=== PATIENT | male | born 1945 | race Asian ===

== ENCOUNTER 2016-11-03 08:56 | Day surgery (SDC) | payer OTHER, MEDICARE ==
[2016-11-02 15:25] VITALS: BMI 27.5
[2016-11-03 11:04] VITALS: TEMP 98.5
[2016-11-03 12:42] VITALS: BP 148/68; PULSE 70
--- NOTE | 2016-11-04 12:33 | PATH ---
Surgical Pathology Report Patient Name: WILDA FONTANEZ [facility]. Rec. #: [id number] /Age/Gender: 1945 (Age: 71) / M Account: [id number] Location: [facility]OSCOPY Taken: 11/03/2016 Received: 11/03/2016 Reported: 11/04/2016 Physicians: Alli Rodriguez M.D. Specimen(s) Received A: BX DESCENDING COLON POLYPS B: BX POLYP CECUM Clinical History History of colonic polyp Colon polyps (descending colon and cecum) Final Diagnosis A. COLON, DESCENDING, BIOPSY: TUBULAR ADENOMA. B. COLON, CECUM, BIOPSY: HYPERPLASTIC POLYP. Electronically Signed Mookie Ochoa M.D. Gross Description A. Received in formalin, labeled "biopsy descending colon polyp" are 2 marie, irregular portions of soft tissue averaging 0.2 cm. in greatest dimension. The specimens are submitted in toto in one cassette. B. Received in formalin, labeled "biopsy polyp cecum" are 4 marie, irregular portions of soft tissue averaging 0.2 cm. in greatest dimension. The specimens are submitted in toto in one cassette. 11/03/2016 saudi11/03/2016
== END 2016-11-03 12:30 | disposition home or self-care (01) ==
LOC: JASU-ENDO 08:56
PROVIDERS: ATTEND Internal Medicine Gastroenterology
PROC: 0DBM8ZX Excision of Descending Colon, Via Natural or Artificial Opening Endoscopic, Diagnostic (ICD-10-PCS; 2016-11-03)
PROC: 0DBH8ZX Excision of Cecum, Via Natural or Artificial Opening Endoscopic, Diagnostic (ICD-10-PCS; principal; 2016-11-03 10:00)
DX: Z12.11 Encounter for screening for malignant neoplasm of colon (principal); Z86.010 Personal history of colon polyps; D12.0 Benign neoplasm of cecum; D12.4 Benign neoplasm of descending colon
CPT/HCPCS: 88305-TC

== ENCOUNTER 2017-10-25 10:25 | Day surgery (SDC) | payer OTHER ==
[2017-10-22 17:34] VITALS: BMI 27.3
[2017-10-25] MEDS ORDERED: PROMETHAZINE HCL 25 MG/1 ML VIAL IVPUSH PRN (13:49)
[2017-10-25] MEDS ORDERED: ONDANSETRON 4 MG/2 ML VIAL IVPUSH PRN (13:49)
[2017-10-25] MEDS ORDERED: LACTATED RINGERS SOLUTION 1,000 ML IV SCH (14:00)
[2017-10-25] MEDS ORDERED: MIDAZOLAM HCL 2 MG/2 ML SINGLE DOSE VIAL ONE ×2 (14:21→14:50)
[2017-10-25] MEDS ORDERED: ceFAZolin SODIUM 1 GM VIAL ONE (14:25)
[2017-10-25] MEDS ORDERED: SODIUM CHLORIDE 0.9% P/F 10 ML VIAL IJ ONE (14:25)
[2017-10-25] MEDS ORDERED: ceFAZolin SODIUM 1 GM VIAL IVPB ONE (14:25)
--- NOTE | 2017-10-25 16:22 | HP ---
DATE OF ADMISSION: HISTORY: The patient is a 72-year-old male with a history of diabetes, high blood pressure, and severe prostatism. He complains of frequency, urgency, nocturia, and feelings of incomplete bladder emptying. PHYSICAL EXAMINATION: Abdomen: Soft abdomen. Genitalia: Atraumatic. His prostate is 3+, smooth, benign, nontender. Neurologic: No localizing findings. Skin: Reveals no rashes or lesions. A chest x-ray revealed cardiomegaly with increased interstitial markings, calcified aortic notch. Patient underwent an echocardiogram, which revealed cardiomegaly but was cleared cardiologically. Presently, he is to undergo a transurethral vaporization of the prostate. All side effects including retrograde ejaculation are explained to the patient, and he agrees. Roberto [id number]
--- NOTE | 2017-10-25 17:38 | OP ---
DATE OF OPERATION: 10/25/2017 PREOPERATIVE DIAGNOSES: Benign prostatic hypertrophy, urinary retention, lower urinary tract symptoms, large post-void residual. POSTOPERATIVE DIAGNOSES: Obstructive prostate gland and trabeculated bladder. OPERATIVE PROCEDURE: Cystourethroscopy, excision of bladder neck polyp, and transurethral vaporization of prostate. ANESTHESIA: General. DESCRIPTION OF PROCEDURE: Under above-stated anesthesia, patient was prepped and draped in the usual sterile manner. Cystoscopy revealed trilobar hypertrophy of the prostate with a grade 2 trabeculation. On inspection, a polypoid lesion was seen at the 6 o'clock position of the bladder neck. This was grasped with a biopsy forcep and the area fulgurated and sent separately to Pathology. The vaportrode was then introduced, and vaporization of the prostate was commenced in the usual fashion by commencing at the 6 o'clock position of the right lateral lobe and moving on to the 12 o'clock position. Same thing was done to the left lateral lobe. Lastly, the median lobe was resected. Hemostasis was secured with electrocoagulation. Prostate chips were evacuated with an Tizra evacuator. No active bleeding was noted. Therefore, a 22-Trinidadian 10-mL Beltran was inserted. This was connected to a leg bag. The patient tolerated the procedure well. He returned to the recovery room in good condition. Roberto [id number]
[2017-10-25 17:40] VITALS: PULSE 70
[2017-10-25 18:55] VITALS: BP 153/84
--- NOTE | 2017-10-27 10:02 | PATH ---
Cytology Non-Gynecological Report Patient Name: WILDA FONTANEZ Med. Rec. #: [id number] /Age/Gender: 1945 (Age: 72) / M Account: [id number] Location: [facility] Taken: 10/25/2017 Received: 10/26/2017 Reported: 10/27/2017 Physicians: Philip Montanez M.D. Specimen(s) Received URINE VOIDED Clinical History BPH, bladder neck polyp Final Diagnosis URINE FOR CYTOLOGY: SATISFACTORY FOR EVALUATION. ATYPICAL. FEW ATYPICAL UROTHELIAL FRAGMENTS WITH MILD INCREASE IN NUCLEUS TO CYTOPLASMIC RATIO, HYPERCHROMASIA, COARSENING OF CHROMATIN, AND MILD IRREGULARITY IN NUCLEAR CONTOURS PRESENT. NUMEROUS RED BLOOD CELLS PRESENT. Comment: Urine FISH studies pending. Findings will be reported as an addendum. See concurrent material ([id number]). Electronically Signed Nuria Hanna M.D. Addendum Reported: 11/01/2017 Addendum Diagnosis URINARY TRACT FISH ANALYSIS performed at [facility], [place], [place] ([id number]) INTERPRETATION: Negative. COMMENT: There are no abnormal cells with gains of 2 or more chromosomes identified. See Emerge report for details. Nuria Hanna M.D. Gross Description Approximately 40 cc of yellow fluid received fresh. Two cytofunnels prepared. Material forwarded to [facility] for ancillary testing.
--- NOTE | 2017-10-27 12:19 | PATH ---
Surgical Pathology Report Patient Name: WILDA FONTANEZ Med. Rec. #: [id number] /Age/Gender: 1945 (Age: 72) / M Account: [id number] Location: [facility] SUR[facility] Taken: 10/25/2017 Received: 10/26/2017 Reported: 10/27/2017 Physicians: Philip Montanez M.D. Specimen(s) Received A: BLADDER NECK POLYP B: PROSTATE CHIPS Clinical History BPH Final Diagnosis A. BLADDER, NECK, POLYP, BIOPSY: INVERTED UROTHELIAL PAPILLOMA. B. PROSTATE SHAVINGS, TRANSURETHRAL RESECTION OF PROSTATE: BENIGN PROSTATIC TISSUE WITH GLANDULAR AND STROMAL HYPERPLASIA. Comment: See concurrent cytology [id number]. Electronically Signed Nuria Hanna M.D. Gross Description A. Received in formalin labeled "bladder neck polyp," is a 1.1 x 0.5 x 0.2 cm marie, polypoid portion of soft tissue. The specimen is submitted in toto in one cassette. B. Received in formalin labeled "prostate shavings," is a 1 g, 3.5 x 1.7 x 0.3 cm aggregate of marie soft tissue fragments. The formalin is filtered and the specimen is entirely submitted in 2 cassettes. /10/26/201710/26/2017
== END 2017-10-25 18:58 | disposition home or self-care (01) ==
LOC: JASU-SURG 10:25
PROVIDERS: ATTEND Urology
PROC: 0TBC8ZX Excision of Bladder Neck, Via Natural or Artificial Opening Endoscopic, Diagnostic (ICD-10-PCS; 2017-10-25)
PROC: 0VT08ZZ Resection of Prostate, Via Natural or Artificial Opening Endoscopic (ICD-10-PCS; principal; 2017-10-25 12:00)
DX: N40.1 Benign prostatic hyperplasia with lower urinary tract symptoms (principal); R39.198 Other difficulties with micturition; R33.8 Other retention of urine; D41.4 Neoplasm of uncertain behavior of bladder
CPT/HCPCS: 82962; 87086; 88108; 88305-TC; 94760

== ENCOUNTER 2023-02-08 17:34 | Inpatient (IN) | payer OTHER, MEDICARE ==
[2023-02-08 18:12] VITALS: BMI 25.0
[2023-02-08] MEDS ORDERED: ACETAMINOPHEN 1000 MG/100 ML BAG IVPB ONE (18:49)
[2023-02-08] MEDS ORDERED: ACETAMINOPHEN INJECTION 100 ML IVPB ONE (19:41)
[2023-02-08 20:59] LABS: ALBUMIN 3.6 g/dl (3.4-5.0); CALCIUM 9.2 mg/dL (8.5-10.1)
[2023-02-08 21:00] LABS: BLOOD UREA NITROGEN 26.1 mg/dL (7-18)
[2023-02-08 21:03] LABS: CREATININE 0.8 mg/dL (0.55-1.3); HEMATOCRIT 41.4 % (35.4-49); HEMOGLOBIN 13.9 GM/dL (11.7-16.9); MCH 31.2 pg (25.7-33.7); MCHC 33.5 g/dl (32.0-35.9); MEAN PLT VOLUME 8.2 fl (7.5-11.1); PLATELET COUNT 188 10^3/uL (134-434); RBC 4.45 M/mm3 (4.00-5.60); RDW 14.1 % (11.9-15.9); WHITE BLOOD COUNT 11.2 K/mm3 (4.0-10.0)
[2023-02-08 21:04] LABS: BILIRUBIN,TOTAL 0.7 mg/dL (0.2-1); TOT PROT 7.2 g/dl (6.4-8.2)
[2023-02-08] MEDS ORDERED: POTASSIUM CHLORIDE ORAL LIQUID 20 MEQ/15 ML PO ONE (21:07)
[2023-02-08 21:17] LABS: INR 1.05 (0.83-1.09); PROTHROMBIN TIME (PATIENT) 12.2 SEC (9.7-13.0)
[2023-02-08 21:18] LABS: ACTIVATED PTT 29.1 SECONDS (25.2-36.5)
[2023-02-08] MEDS ORDERED: KCL 10 MEQ IVPB 10 MEQ/100 ML INFUS.BAG IVPB ONE (21:37)
[2023-02-08] MEDS ORDERED: POTASSIUM CHLORIDE ORAL LIQUID 20 MEQ/15 ML ONE (21:37)
[2023-02-08 21:47] LABS: MAGNESIUM 2.1 mg/dL (1.8-2.4)
[2023-02-08 21:55] LABS: URINE APPEARANCE CLEAR; URINE BILIRUBIN NEGATIVE (NEGATIVE); URINE COLOR YELLOW; URINE GLUCOSE (UA) 3+ (NEGATIVE); URINE KETONE 2+ (NEGATIVE); URINE LEUK ESTERASE NEGATIVE (NEGATIVE); URINE NITRITE NEGATIVE (NEGATIVE); URINE PROTEIN TRACE (NEGATIVE); URINE UROBILINOGEN 0.2 mg/dL (0.2-1.0)
[2023-02-08] MEDS ORDERED: SODIUM CHLORIDE 0.9% 500 ML INFUS.BAG IV ONE (22:02)
[2023-02-08] MEDS: KCL 10 MEQ IVPB 10 MEQ/100 ML INFUS.BAG IVPB SCH (22:02)
[2023-02-08] MEDS ORDERED: ACETAMINOPHEN 1000 MG/100 ML BAG IVPB PRN (23:14)
[2023-02-08] MEDS ORDERED: CEFTRIAXONE 2,000 MG in DEXTROSE 5%-WATER - 50 ML IVPB ONE (23:47)
[2023-02-09 00:04] LABS: ANISOCYTOSIS 1+; MACROCYTOSIS 0; OVALOCYTE 1+; PLATELET ESTIMATE NORMAL
[2023-02-09] MEDS ORDERED: CEFTRIAXONE 2 GM in DEXTROSE 5%-WATER 100 ML IVPB ONE (00:30)
[2023-02-09] MEDS: KCL 10 MEQ IVPB 10 MEQ/100 ML INFUS.BAG IVPB SCH ×2 (00:33→01:32)
[2023-02-09] MEDS: DEXTROSE 5%-0.45% SALINE 1,000 ML IV SCH ×2 (02:51→16:06)
[2023-02-09] MEDS: INSULIN SLIDING SCALE (NOVOLOG) 1 VIAL SQ SCH ×4 (06:00→21:17)
[2023-02-09 08:13] LABS: BASO % 0.2 % (0-2.0); EOS % 0.1 % (0-4.5); HEMATOCRIT 37.1 % (35.4-49); HEMOGLOBIN 12.7 GM/dL (11.7-16.9); LYMPH % 5.3 % (8-40); MCH 31.7 pg (25.7-33.7); MCHC 34.4 g/dl (32.0-35.9); MEAN CELL VOLUME 92.2 fl (80-96); MEAN PLT VOLUME 7.8 fl (7.5-11.1); MONO % 10.4 % (3.8-10.2); PLATELET COUNT 176 10^3/uL (134-434); RBC 4.02 M/mm3 (4.00-5.60); RDW 13.9 % (11.9-15.9); WHITE BLOOD COUNT 6.9 K/mm3 (4.0-10.0)
[2023-02-09 08:23] LABS: POTASSIUM 3.3 mmol/L (3.5-5.1)
[2023-02-09 08:25] LABS: BLOOD UREA NITROGEN 19.2 mg/dL (7-18); CALCIUM 8.8 mg/dL (8.5-10.1)
[2023-02-09 08:26] LABS: ALBUMIN 3.1 g/dl (3.4-5.0)
[2023-02-09 08:30] LABS: BILIRUBIN,TOTAL 0.4 mg/dL (0.2-1); CREATININE 0.6 mg/dL (0.55-1.3); TOT PROT 6.2 g/dl (6.4-8.2)
[2023-02-09] MEDS ORDERED: INSULIN (NOVOLOG) ASPART 100 UNITS/ML 10ML VIAL ONE ×2 (09:09→20:36)
[2023-02-09] MEDS: TAMSULOSIN HCL 0.4 MG CAP PO SCH (09:12)
[2023-02-09] MEDS: ASPIRIN COATED 81 MG TABLET.EC PO SCH (09:13)
[2023-02-09] MEDS: HEPARIN NA (PORCINE) 5,000 UNITS/ML 1ML VIAL SQ SCH ×2 (09:13→21:16)
[2023-02-09] MEDS: HYDROCHLOROTHIAZIDE 25 MG TABLET (FP) PO SCH (09:13)
[2023-02-09] MEDS ORDERED: POTASSIUM CHLORIDE TABS 20 MEQ TABLET.ER (FP) PO ONE (12:00)
[2023-02-10] MEDS: INSULIN SLIDING SCALE (NOVOLOG) 1 VIAL SQ SCH ×4 (06:36→21:12)
[2023-02-10 07:06] LABS: BASO % 0.4 % (0-2.0); EOS % 0.9 % (0-4.5); HEMATOCRIT 37.7 % (35.4-49); HEMOGLOBIN 13.2 GM/dL (11.7-16.9); LYMPH % 12.6 % (8-40); MCH 32.1 pg (25.7-33.7); MCHC 34.9 g/dl (32.0-35.9); MEAN CELL VOLUME 92.1 fl (80-96); MEAN PLT VOLUME 8.7 fl (7.5-11.1); MONO % 13.5 % (3.8-10.2); NEUT % 72.6 % (42.8-82.8); PLATELET COUNT 174 10^3/uL (134-434); RBC 4.09 M/mm3 (4.00-5.60); RDW 13.9 % (11.9-15.9); WHITE BLOOD COUNT 4.7 K/mm3 (4.0-10.0)
[2023-02-10 07:20] LABS: POTASSIUM 3.2 mmol/L (3.5-5.1)
[2023-02-10 07:21] LABS: ALBUMIN 3.2 g/dl (3.4-5.0); BLOOD UREA NITROGEN 12.8 mg/dL (7-18); CALCIUM 8.6 mg/dL (8.5-10.1)
[2023-02-10 07:25] LABS: CREATININE 0.6 mg/dL (0.55-1.3)
[2023-02-10 07:26] LABS: BILIRUBIN,TOTAL 0.4 mg/dL (0.2-1); TOT PROT 6.5 g/dl (6.4-8.2)
[2023-02-10] MEDS: TAMSULOSIN HCL 0.4 MG CAP PO SCH (07:53)
[2023-02-10] MEDS: HYDROCHLOROTHIAZIDE 25 MG TABLET (FP) PO SCH (09:09)
[2023-02-10] MEDS: HEPARIN NA (PORCINE) 5,000 UNITS/ML 1ML VIAL SQ SCH ×2 (09:09→21:11)
[2023-02-10] MEDS: POTASSIUM CHLORIDE ORAL LIQUID 20 MEQ/15 ML PO SCH (09:10)
[2023-02-10] MEDS: ASPIRIN COATED 81 MG TABLET.EC PO SCH (09:10)
[2023-02-10] MEDS ORDERED: CEFTRIAXONE 1 GM in DEXTROSE 5%-WATER - 50 ML IVPB SCH (10:00)
[2023-02-10 10:58] LABS: POTASSIUM 4.5 mmol/L (3.5-5.1)
[2023-02-10 11:04] LABS: ALBUMIN 3.1 g/dl (3.4-5.0); BLOOD UREA NITROGEN 11.7 mg/dL (7-18); CALCIUM 8.7 mg/dL (8.5-10.1)
[2023-02-10 11:07] LABS: CREATININE 0.7 mg/dL (0.55-1.3)
[2023-02-10 11:09] LABS: BILIRUBIN,TOTAL 0.4 mg/dL (0.2-1); TOT PROT 6.4 g/dl (6.4-8.2)
[2023-02-10] MEDS ORDERED: INSULIN (NOVOLOG) ASPART 100 UNITS/ML 10ML VIAL ONE ×2 (11:22→20:37)
[2023-02-10] MEDS ORDERED: FLU VACC QS2022-23(6MOS UP)/PF 60 MCG/0.5 ML SYRINGE IM ONE (17:00)
[2023-02-11] MEDS: INSULIN SLIDING SCALE (NOVOLOG) 1 VIAL SQ SCH ×4 (06:01→21:06)
[2023-02-11] MEDS: HEPARIN NA (PORCINE) 5,000 UNITS/ML 1ML VIAL SQ SCH (10:21)
[2023-02-11] MEDS: ASPIRIN COATED 81 MG TABLET.EC PO SCH (10:21)
[2023-02-11] MEDS: HYDROCHLOROTHIAZIDE 25 MG TABLET (FP) PO SCH (10:21)
[2023-02-11] MEDS: TAMSULOSIN HCL 0.4 MG CAP PO SCH (10:22)
[2023-02-11] MEDS: POTASSIUM CHLORIDE ORAL LIQUID 20 MEQ/15 ML PO SCH (10:22)
[2023-02-11] MEDS ORDERED: INSULIN (NOVOLOG) ASPART 100 UNITS/ML 10ML VIAL ONE ×2 (11:44→21:00)
[2023-02-11] MEDS: XTANDI 40 MG PO SCH ×2 (11:57→21:06)
[2023-02-11] MEDS ORDERED: ROSUVASTATIN CA 5 MG TABLET PO SCH (22:00)
[2023-02-11 23:25] VITALS: RESP 18
[2023-02-12] MEDS: INSULIN SLIDING SCALE (NOVOLOG) 1 VIAL SQ SCH ×3 (06:00→16:39)
[2023-02-12 07:04] LABS: BASO % 0.5 % (0-2.0); EOS % 4.7 % (0-4.5); HEMATOCRIT 36.2 % (35.4-49); HEMOGLOBIN 12.9 GM/dL (11.7-16.9); LYMPH % 18.3 % (8-40); MCH 32.9 pg (25.7-33.7); MCHC 35.7 g/dl (32.0-35.9); MEAN CELL VOLUME 92.1 fl (80-96); MEAN PLT VOLUME 8.2 fl (7.5-11.1); MONO % 14.5 % (3.8-10.2); PLATELET COUNT 204 10^3/uL (134-434); RBC 3.93 M/mm3 (4.00-5.60); RDW 13.8 % (11.9-15.9); WHITE BLOOD COUNT 2.6 K/mm3 (4.0-10.0)
[2023-02-12 07:18] LABS: POTASSIUM 3.4 mmol/L (3.5-5.1)
[2023-02-12 07:21] LABS: BLOOD UREA NITROGEN 14.8 mg/dL (7-18); CALCIUM 9.1 mg/dL (8.5-10.1); MAGNESIUM 1.8 mg/dL (1.8-2.4)
[2023-02-12 07:24] LABS: CREATININE 0.6 mg/dL (0.55-1.3); PHOSPHOROUS 4.2 mg/dL (2.5-4.9)
[2023-02-12 07:26] LABS: BILIRUBIN,TOTAL 0.5 mg/dL (0.2-1); TOT PROT 6.2 g/dl (6.4-8.2)
[2023-02-12] MEDS: TAMSULOSIN HCL 0.4 MG CAP PO SCH (08:40)
[2023-02-12] MEDS ORDERED: ENOXAPARIN NA (PORCINE) 40 MG/0.4 ML DISP.SYRIN SQ SCH (10:00)
[2023-02-12] MEDS ORDERED: FINASTERIDE 5 MG TABLET (FP) PO SCH (10:00)
[2023-02-12] MEDS ORDERED: amLODIPine BESYLATE 10 MG TABLET (FP) PO SCH (10:00)
[2023-02-12] MEDS ORDERED: amLODIPine BESYLATE 5 MG TABLET (FP) PO SCH (10:00)
[2023-02-12] MEDS: POTASSIUM CHLORIDE ORAL LIQUID 20 MEQ/15 ML PO SCH (10:25)
[2023-02-12] MEDS: ASPIRIN COATED 81 MG TABLET.EC PO SCH (10:26)
[2023-02-12] MEDS: HYDROCHLOROTHIAZIDE 25 MG TABLET (FP) PO SCH (10:26)
[2023-02-12] MEDS: XTANDI 40 MG PO SCH ×2 (10:27→10:41)
[2023-02-12] MEDS ORDERED: XTANDI 40 MG PO SCH (10:55)
[2023-02-12] MEDS ORDERED: INSULIN (NOVOLOG) ASPART 100 UNITS/ML 10ML VIAL ONE (10:57)
[2023-02-12 15:00] VITALS: BP 138/77; PULSE 81; TEMP 97.5
== END 2023-02-12 17:45 | disposition home or self-care (01) | DRG 72 ==
LOC: JER 17:34 → JERBED 22:47 → J7W 02-09 00:22
PROVIDERS: ADMIT Internal Medicine; ATTEND Internal Medicine
DX: G93.41 Metabolic encephalopathy (principal); E78.5 Hyperlipidemia, unspecified; E11.9 Type 2 diabetes mellitus without complications; I10 Essential (primary) hypertension; Z85.46 Personal history of malignant neoplasm of prostate; G93.89 Other specified disorders of brain; M48.02 Spinal stenosis, cervical region; G95.9 Disease of spinal cord, unspecified; E87.6 Hypokalemia
CPT/HCPCS: 0241U-QW; 36415; 70450-TC; 70551-TC; 71045-TC-FY; 72125-TC; 80053; 81003; 82306; 82607; 82728; 82746; 82962; 83036; 83540; 83550; 83605; 83735; 84100; 84443; 84484; 85025; 85610; 85730; 86780; 87040; 87086; 93005; 93010; 93880-TC; 97116-GP; 97161-GP; 99285-25; G0008; J1644; Q2036